=== PATIENT | female | born 1950 ===

== ENCOUNTER → 2017-04-15 | Outpatient (CLI) | payer MEDICARE, OTHER ==
--- NOTE | 2017-04-15 10:44 | REP ---
Clinical: Chronic pain . Technique: AP, lateral, bilateral oblique views of the right elbow. Findings: No acute fracture or dislocation is appreciated. Joint spaces and surrounding soft tissues appear normal. Lateral view demonstrates normal positioning to the anterior and posterior fat pads without evidence for effusion/hemarthrosis. No subcutaneous emphysema or foreign body identified. Impression: Normal age appropriate right elbow radiographs. Signed by Parminder Henry MD 04/15/2017 10:35 A
--- NOTE | 2017-04-15 10:46 | REP ---
Clinical: Pain . Technique: AP, lateral, bilateral oblique views left ankle . Findings: Mild medial swelling cannot be excluded. No acute fracture or dislocation. Skeletal structures and joint spaces are intact and demonstrate mild age-related degenerative changes. Ankle mortise appears stable. Impression: Mild medial swelling and age-related changes. Signed by Parminder Henry MD 04/15/2017 10:37 A
== END ==
LOC: M WUC 10:08
PROVIDERS: ATTEND Physician Assistant
DX: M77.11 Lateral epicondylitis, right elbow (principal); S93.422A Sprain of deltoid ligament of left ankle, initial encounter; M25.472 Effusion, left ankle; X58.XXXA Exposure to other specified factors, initial encounter; Y93.9 Activity, unspecified; Y92.9 Unspecified place or not applicable; Y99.8 Other external cause status